=== PATIENT | male | born 1965 | race Caucasian/White ===

== ENCOUNTER 2020-07-22 03:11 | Inpatient (IN) | payer OTHER ==
[2020-07-22 03:54] LABS: #Basophils 0.1 10x3/uL (0.0-0.2); #Monocytes 1.5 10x3/uL (0.0-1.1); #Neutrophils 18.4 10x3/uL (1.5-8.4); %Basophils 0.3 % (0.0-2.0); %Eosinophils 0.1 % (0.0-6.0); %Lymphocytes 9.2 % (18.0-47.0); %Monocytes 6.6 % (0.0-10.0); %Neutrophils 82.9 % (40.0-75.0); Hemoglobin 11.1 g/dL (13.5-17.5); Mean Corpuscular HGB CONC 33.2 g/dL (32.0-36.0); Mean Corpuscular Hemoglobin 29.4 pg (27.0-33.0); Mean Corpuscular Volume 88.4 fl (81.2-95.1); Mean Platelet Volume 10.3 fl (7.4-10.4); Platelet Count 631 10x3/uL (150-450); RBC Distribution Width 13.6 % (11.5-14.5); Red Blood Cell (RBC) Count 3.78 10x6/uL (4.32-5.72); White Blood Cell (WBC) Count 22.1 10x3/uL (3.5-10.5)
[2020-07-22] MEDS ORDERED: Piperacillin/Tazobactam 4.5 GM VIAL ONE (04:01)
[2020-07-22 04:05] LABS: Bilirubin 1+ (Negative); Blood, Urine 25 (Negative); Clarity Cloudy (Clear); Glucose, Urine (Dipstick) Normal (Negative); Ketone, Urine 15 mg/dL (Negative); Leukocyte 25 (Negative); Nitrite Negative (Negative); Protein, Urine (Dipstick) 30 mg/dl (Neg-Trace); Specific Gravity, Urine 1.025 (1.002-1.036)
[2020-07-22 04:11] LABS: ALT (SGPT) 211 U/L (8-55); AST (SGOT) 94 U/L (5-34); Albumin 4.3 g/dL (3.5-5.0); Alkaline Phosphatase 132 U/L (40-110); Anion Gap 28 mmol/L (10-20); BUN (Urea Nitrogen) 40 mg/dL (8.4-25.7); Bilirubin, Total 1.2 mg/dL (0.2-1.2); Calc. Creatinine Clearance 0 mL/min (70-130); Calcium 9.6 mg/dL (7.8-10.44); Carbon Dioxide 17 mmol/L (22-29); Chloride 95 mmol/L (98-107); Globulin 3.1 g/dL (2.4-3.5); Glucose 140 mg/dL (70-105); Potassium 4.5 mmol/L (3.5-5.1); Protein, Total 7.4 g/dL (6.0-8.3); Sodium 135 mmol/L (136-145)
[2020-07-22 04:17] LABS: Bacteria/HPF Rare-Few HPF (None Seen); RBC/HPF 0-3 HPF (0-3); Squamous Epithelial None Seen HPF (0-3); WBC/HPF 0-3 HPF (0-3); White Blood Cell Cast 0-3 LPF (None Seen)
[2020-07-22 06:41] LABS: Lactic Acid 1.3 mmol/L (0.5-2.2)
[2020-07-22] MEDS ORDERED: Morphine 4 MG/ML VIAL ONE (09:34)
[2020-07-22 10:20] VITALS: BMI 30.7
[2020-07-22] MEDS ORDERED: Ondansetron ODT 4 MG TAB PO PRN (10:56)
[2020-07-22] MEDS ORDERED: Acetaminophen 650 MG Suppository PR PRN (10:56)
[2020-07-22] MEDS ORDERED: Piperacillin/Tazobactam 3.375 GM in Sodium Chloride 0.9% 100 ML IVPB SCH (12:00)
[2020-07-22] MEDS ORDERED: Vancomycin 1.5 GRAM/300 ML BAG 1.5 GM in Premix Bag 1 BAG IVPB SCH (13:00)
[2020-07-22] MEDS: Sodium Chloride 0.9% 1,000 ML IV SCH ×2 (13:15→21:15)
[2020-07-22] MEDS: Piperacillin/Tazobactam 3.375 GM in Sodium Chloride 0.9% 100 ML IVPB SCH (13:15)
[2020-07-22] MEDS ORDERED: VANCOMYCIN 1.25 GM/250 ML BAG 1.25 GM in Premix Bag 1 BAG IVPB SCH (16:00)
[2020-07-22 19:08] LABS: SARS-CoV-2 PCR by NAA Not Detected (NotDetected)
[2020-07-22] MEDS: Mometasone 200 MCG/PUFF (1 INHALER) INH SCH (20:11)
[2020-07-23] MEDS: Piperacillin/Tazobactam 3.375 GM in Sodium Chloride 0.9% 100 ML IVPB SCH ×2 (00:05→10:13)
[2020-07-23] MEDS: Sodium Chloride 0.9% 1,000 ML IV SCH ×3 (03:33→21:27)
[2020-07-23 05:07] LABS: Anion Gap 14 mmol/L (10-20); Globulin 2.5 g/dL (2.4-3.5)
[2020-07-23 05:28] LABS: #Eosinphils 0.3 10x3/uL (0.0-0.5); #Monocytes 0.6 10x3/uL (0.0-1.1); #Neutrophils 4.2 10x3/uL (1.5-8.4); %Basophils 0.6 % (0.0-2.0); %Eosinophils 3.6 % (0.0-6.0); %Lymphocytes 25.9 % (18.0-47.0); %Neutrophils 61.2 % (40.0-75.0); Hemoglobin 7.7 g/dL (13.5-17.5); Mean Corpuscular HGB CONC 32.4 g/dL (32.0-36.0); Mean Corpuscular Hemoglobin 29.1 pg (27.0-33.0); Mean Corpuscular Volume 89.8 fl (81.2-95.1); Mean Platelet Volume 9.9 fl (7.4-10.4); Platelet Count 288 10x3/uL (150-450); Red Blood Cell (RBC) Count 2.65 10x6/uL (4.32-5.72); White Blood Cell (WBC) Count 6.9 10x3/uL (3.5-10.5)
[2020-07-23 05:48] LABS: ALT (SGPT) 104 U/L (8-55); AST (SGOT) 30 U/L (5-34); Alkaline Phosphatase 78 U/L (40-110); BUN (Urea Nitrogen) 24 mg/dL (8.4-25.7); Bilirubin, Total 0.4 mg/dL (0.2-1.2); Calc. Creatinine Clearance 124 mL/min (70-130); Calcium 7.9 mg/dL (7.8-10.44); Carbon Dioxide 21 mmol/L (22-29); Chloride 106 mmol/L (98-107); Glucose 73 mg/dL (70-105); Potassium 3.2 mmol/L (3.5-5.1); Protein, Total 5.5 g/dL (6.0-8.3); Sodium 138 mmol/L (136-145)
[2020-07-23] MEDS ORDERED: Potassium Chloride 20 MEQ TAB PO SCH (08:00)
[2020-07-23] MEDS: Mometasone 200 MCG/PUFF (1 INHALER) INH SCH ×2 (08:47→18:44)
[2020-07-23] MEDS ORDERED: Vancomycin 1.5 GRAM/300 ML BAG 1.5 GM in Premix Bag 1 BAG IVPB SCH (09:00)
[2020-07-23] MEDS: Morphine 4 MG/ML VIAL SLOW IVP PRN ×3 (10:11→21:18)
[2020-07-23] MEDS: Mupirocin 2% Ointment 22 GM Tube TOP SCH (11:24)
[2020-07-23] MEDS ORDERED: Potassium Bicarbonate/Cit Ac 20 MEQ TAB PO SCH (20:00)
[2020-07-23] MEDS: Amoxicillin/Potassium Clav 875 MG TAB PO SCH (21:18)
[2020-07-24 04:58] LABS: #Eosinphils 0.2 10x3/uL (0.0-0.5); #Monocytes 0.8 10x3/uL (0.0-1.1); #Neutrophils 7.1 10x3/uL (1.5-8.4); %Basophils 0.4 % (0.0-2.0); %Lymphocytes 18.8 % (18.0-47.0); %Monocytes 7.9 % (0.0-10.0); %Neutrophils 70.3 % (40.0-75.0); Hemoglobin 7.6 g/dL (13.5-17.5); Mean Corpuscular HGB CONC 32.6 g/dL (32.0-36.0); Mean Corpuscular Hemoglobin 29.6 pg (27.0-33.0); Mean Corpuscular Volume 90.7 fl (81.2-95.1); Mean Platelet Volume 9.9 fl (7.4-10.4); Platelet Count 308 10x3/uL (150-450); RBC Distribution Width 13.7 % (11.5-14.5); Red Blood Cell (RBC) Count 2.57 10x6/uL (4.32-5.72)
[2020-07-24] MEDS: Morphine 4 MG/ML VIAL SLOW IVP PRN ×3 (05:07→14:03)
[2020-07-24 05:08] LABS: Iron 21 ug/dL (65-175); Iron Binding Capacity, Total 248 mcg/dL (261-462)
[2020-07-24 05:10] LABS: ALT (SGPT) 66 U/L (8-55); AST (SGOT) 16 U/L (5-34); Alkaline Phosphatase 72 U/L (40-110); Anion Gap 9 mmol/L (10-20); BUN (Urea Nitrogen) 13 mg/dL (8.4-25.7); Bilirubin, Total 0.2 mg/dL (0.2-1.2); Calc. Creatinine Clearance 142 mL/min (70-130); Calcium 7.6 mg/dL (7.8-10.44); Carbon Dioxide 25 mmol/L (22-29); Chloride 106 mmol/L (98-107); Globulin 2.4 g/dL (2.4-3.5); Glucose 105 mg/dL (70-105); Iron 20 ug/dL (65-175); Iron Binding Capacity, Total 249 mcg/dL (261-462); Potassium 3.4 mmol/L (3.5-5.1); Protein, Total 5.4 g/dL (6.0-8.3); Sodium 137 mmol/L (136-145)
[2020-07-24] MEDS: Sodium Chloride 0.9% 1,000 ML IV SCH (05:41)
[2020-07-24] MEDS: Amoxicillin/Potassium Clav 875 MG TAB PO SCH (08:54)
[2020-07-24] MEDS ORDERED: Ferrous Sulfate 325 MG TAB PO SCH ×2 (10:00→17:00)
[2020-07-24] MEDS: Mometasone 200 MCG/PUFF (1 INHALER) INH SCH (10:51)
[2020-07-24] MEDS: Mupirocin 2% Ointment 22 GM Tube TOP SCH (11:12)
[2020-07-24 14:52] VITALS: BP 112/68; TEMP 98.1
== END 2020-07-24 15:01 | disposition home or self-care (01) | DRG 949 ==
LOC: CSHERS 03:11 → EEVIPCON 10:07 → CSHTELE 10:07
PROVIDERS: ADMIT Family Medicine; ATTEND Internal Medicine
DX: T81.83XD Persistent postprocedural fistula, subsequent encounter (principal); R65.11 Systemic inflammatory response syndrome (SIRS) of non-infectious origin with acute organ dysfunction; K63.2 Fistula of intestine; L03.311 Cellulitis of abdominal wall; N17.9 Acute kidney failure, unspecified; E87.2 Acidosis; E87.1 Hypo-osmolality and hyponatremia; E86.0 Dehydration; Z20.822 Contact with and (suspected) exposure to COVID-19; I10 Essential (primary) hypertension; R74.01 Elevation of levels of liver transaminase levels; R07.89 Other chest pain; K21.9 Gastro-esophageal reflux disease without esophagitis; D64.9 Anemia, unspecified; M62.08 Separation of muscle (nontraumatic), other site; Z85.038 Personal history of other malignant neoplasm of large intestine; Z83.3 Family history of diabetes mellitus; Z79.899 Other long term (current) drug therapy
CPT/HCPCS: 36415; 51701; 71045; 74177; 80053; 81003; 81015; 83540; 83550; 83605; 83880; 84484; 85025; 87040; 87086; 87635; 93005; 94664; 94760; 96365; 96375; J2270; J2543; J3370; J3490; J7050; U0003; U0005